=== PATIENT | female | born 1960 | race Caucasian/White ===

== ENCOUNTER → 2024-01-20 11:06 | Outpatient (CLI) | payer OTHER, SELFPAY ==
[2024-01-20 11:57] LABS: Influenza A - CEPHEID Flu A NEGATIVE (NEGATIVE); Influenza B - CEPHEID Flu B NEGATIVE (NEGATIVE); Respiratory Syncytial Virus Negative (Negative)
[2024-01-20 12:15] LABS: COVID-19 CEPHEID 4-PLEX PCR POSITIVE (Negative)
== END ==
PROVIDERS: Visit Provider Physician Assistant Surgical
DX: Z20.828 Contact with and (suspected) exposure to other viral communicable diseases (principal); J02.9 Acute pharyngitis, unspecified
CPT/HCPCS: 0241U; 87070